=== PATIENT | female | born 1995 | race Two or more races ===

== ENCOUNTER 2017-04-28 00:46 | Emergency (ER) | payer MEDICAID ==
[2017-04-28] MEDS ORDERED: KETOROLAC TROMETHAMINE INJ/PF 30 MG/1 ML SDV IV ONE (06:14)
[2017-04-28] MEDS ORDERED: NORMAL SALINE 1000 ML 1,000 ML IV ONE (06:14)
--- NOTE | 2017-04-28 06:23 | ER Document Report ---
ED General - General Chief Complaint: Fever Stated Complaint: FEVER Time Seen by Provider: 04/28/17 06:02 Mode of Arrival: Ambulatory Information source: Patient Notes: 21-year-old female presents with complaints of sore throat headache fevers body aches. Pt admits ot headache ,chest wall pain, denies a cough , admits to left ear pain TRAVEL OUTSIDE OF THE [place] IN LAST 30 DAYS: No - HPI Onset: This morning Onset/Duration: Sudden Quality of pain: Achy Severity: Mild Pain Level: 1 Associated symptoms: Body/muscle aches, Fever Exacerbated by: Denies Relieved by: Denies Similar symptoms previously: No Recently seen / treated by doctor: No - Related Data Allergies/Adverse Reactions: amoxicillin [Amoxicillin] Allergy (Intermediate, Verified 08/11/14 23:30) Hives Past Medical History - Social History Smoking Status: Never Smoker Cigarette use (# per day): No Chew tobacco use (# tins/day): No Smoking Education Provided: No Family History: Reviewed & Not Pertinent Patient has suicidal ideation: No Patient has homicidal ideation: No Renal/ Medical History: Denies: Hx Peritoneal Dialysis Review of Systems - Review of Systems Notes: REVIEW OF SYSTEMS: CONSTITUTIONAL : Admits fever recent illness EENT: Admits to sore throat earache CARDIOVASCULAR: Denies chest pain. Denies palpitations or racing or irregular heart beat. Denies ankle edema. RESPIRATORY: Denies cough, cold, or chest congestion. Denies shortness of breath, difficulty breathing, or wheezing. GASTROINTESTINAL: Denies abdominal pain or distention. Denies nausea, vomiting , or diarrhea. Denies blood in vomitus, stools, or per rectum. Denies black, tarry stools. Denies constipation. GENITOURINARY: Denies difficulty urinating, painful urination, burning, frequency, blood in urine, or discharge. FEMALE GENITOURINARY: Denies vaginal bleeding, heavy or abnormal periods, irregular periods. Denies vaginal discharge or odor. MUSCULOSKELETAL: Admits to body aches chest wall pain SKIN: Denies rash, lesions or sores. HEMATOLOGIC : Denies easy bruising or bleeding. LYMPHATIC: Denies swollen, enlarged glands. NEUROLOGICAL: Admits to headache PSYCHIATRIC: Denies anxiety or stress. Denies depression, suicidal ideation, or homicidal ideation. ALL OTHER SYSTEMS REVIEWED AND NEGATIVE. PHYSICAL EXAMINATION: GENERAL: Well-appearing, well-nourished and in no acute distress. Febrile HEAD: Atraumatic, normocephalic. EYES: Pupils equal round and reactive to light, extraocular movements intact, conjunctiva are normal. ENT: Bilateral tonsillar erythema airway patent uvula midline no exudates noted NECK: Normal range of motion, supple without lymphadenopathy LUNGS: Breath sounds clear to auscultation bilaterally and equal. No wheezes rales or rhonchi. HEART: Regular rate and rhythm without murmurs ABDOMEN: Soft, nontender, nondistended abdomen. No guarding, no rebound. No masses appreciated. Female : deferred Musculoskeletal: Normal range of motion, no pitting or edema. No cyanosis. NEUROLOGICAL: Cranial nerves grossly intact. Normal speech, normal gait. Normal sensory, motor exams no meningeal sign PSYCH: Normal mood, normal affect. SKIN: Warm, Dry, normal turgor, no rashes or lesions noted. Dictation was performed using [employer] voice recognition software Physical Exam - Vital signs Vitals: Temp Pulse Resp BP Pulse Ox 99.3 F 105 H 16 112/68 98 04/28/17 01:26 04/28/17 01:26 04/28/17 01:26 04/28/17 01:26 04/28/17 01:26 Course - Re-evaluation Re-evalutation: 04/28/17 07:37 Rapid strep was negative, patient has obvious pharyngitis, she has no meningeal signs. Patient was given fluids Toradol states she feels much better wishes to be discharged Very strict return precautions have been provided daughter has been having ismilar fever sore throat After performing a Medical Screening Examination, I estimate there is LOW risk for ACUTE CORONARY SYNDROME, RESPIRATORY FAILURE, SEPSIS OR MENINGITIS, thus I consider the discharge disposition reasonable. I have reevaluated this patient multiple times and no significant life threatening changes are noted. The patient and I have discussed the diagnosis and risks, and we agree with discharging home with close follow-up. We also discussed returning to the Emergency Department immediately if new or worsening symptoms occur. We have discussed the symptoms which are most concerning (e.g., changing or worsening pain, trouble swallowing or breathing, neck stiffness, fever) that necessitate immediate return. 04/28/17 07:38 - Vital Signs Vital signs: Temp Pulse Resp BP Pulse Ox 101.9 F H 109 H 18 107/51 L 97 04/28/17 06:15 04/28/17 06:15 04/28/17 06:15 04/28/17 06:15 04/28/17 06:15 Discharge - Discharge Clinical Impression: Body aches Pharyngitis Qualifiers: Pharyngitis/tonsillitis etiology: unspecified etiology Qualified Code(s): J02.9 - Acute pharyngitis, unspecified Fever Qualifiers: Fever type: unspecified Qualified Code(s): R50.9 - Fever, unspecified Condition: Stable Disposition: HOME, SELF-CARE Instructions: Fever ([facility]), Viral Syndrome ([facility]) Additional Instructions: Follow up with your physician tomorrow for further care or return to the ED IMMEDIATELY if symptoms worsen or new concerns occur. If you cannot afford to follow up with your primary care physician a list of low cost clinics have been provided at the end of your discharge papers as well. Prescriptions: Naproxen 500 mg PO BID #20 tablet
[2017-04-28 08:02] VITALS: BP 110/63
== END 2017-04-28 08:03 | disposition home or self-care (01) ==
LOC: ER 00:46
DX: J02.9 Acute pharyngitis, unspecified (principal); R50.9 Fever, unspecified; R07.89 Other chest pain; R51 Headache; H92.02 Otalgia, left ear; Z88.0 Allergy status to penicillin
CPT/HCPCS: 99283; 96374; 87070; 87880; J1885; J7030

== ENCOUNTER → 2017-10-15 | Outpatient (CLI) | payer SELFPAY | LOC: OD 12:46 | PROVIDERS: ATTEND Physician Assistant | DX: N39.0 Urinary tract infection, site not specified (principal) | CPT/HCPCS: 87086 ==